=== PATIENT | male | born 1960 | race Caucasian/White ===

== ENCOUNTER 2016-05-15 11:08 | Emergency (ER) | payer MEDICAID ==
[2016-05-15 11:29] VITALS: BMI 46.5
[2016-05-15 11:30] VITALS: TEMP 98.3
[2016-05-15] MEDS ORDERED: ONDANSETRON HCL 4 MG ODT TAB PO ONE (11:34)
[2016-05-15] MEDS ORDERED: OXYCODONE HCL 5 MG TABLET PO ONE (11:34)
[2016-05-15] MEDS ORDERED: KETOROLAC TROMETHAMINE 10 MG TAB PO ONE (11:34)
--- NOTE | 2016-05-15 12:36 | EDPRACDOC ---
- General Information Chief Complaint: Headache Stated Complaint: FALL (HEADACHE) Time Seen by Provider: 05/15/16 11:29 Information Source: Patient Mode Of Arrival: Car Home Medications: Home Medications Insulin Aspart [Novolog] 20 units SQ ACHS 07/05/14 Insulin Detemir [Levemir] 40 unit SQ BID 07/05/14 Aspirin [Aspirin EC] 81 mg PO DAILY 11/13/14 Gemfibrozil [Lopid] 600 mg PO BID 12/11/14 Metoprolol Tartrate [Lopressor] 25 mg PO BID 12/11/14 Pravastatin [Pravachol] 30 mg PO HS 12/11/14 Meloxicam 15 mg PO DAILY 07/30/15 Minocycline HCl 100 mg PO BID 07/30/15 Mv,Minerals/FA/Lycopene/Ginkgo [One Daily For Men 50+ Adv Tab] 1 tab PO DAILY Oxycodone HCl/Acetaminophen [Percocet 10-325 mg Tablet] 1 tab PO Q8H PRN Pregabalin [Lyrica] 150 mg PO Q8H 07/30/15 Ranitidine HCl 300 mg PO QHS 07/30/15 MetFORMIN (Immediate Release) [GLUCOPHAGE Immed Release] 1,000 mg PO 0700,1700 11/20/15 Butalb/Acetamin/Caffeine [Fioricet] 1 each PO Q4-6H #30 tab 05/15/16 Ondansetron HCl [Zofran] 4 mg PO Q6H PRN #20 tab 05/15/16 Allergies/Adverse Reactions: Allergies Allergy/AdvReac Type Severity Reaction Status Date / Time erythromycin base Allergy Mild Rash-Genera Verified 05/15/16 11:36 [Erythromycin Base] lized codeine [Codeine] Allergy Unknown Unknown/See Verified 05/15/16 11:36 Comments ciprofloxacin [From Cipro] Allergy Nausea/Vomi Verified 05/15/16 11:36 ting ciprofloxacin HCl Allergy Nausea/Vomi Verified 05/15/16 11:36 [From Cipro] ting Sulfa (Sulfonamide Allergy Rash-Genera Verified 05/15/16 11:36 Antibiotics) lized [Sulfa(Sulfonamide Antibiotics)] Penicillins AdvReac Nausea/Vomi Verified 05/15/16 11:36 ting CLINDACIN P Allergy Rash-Genera Uncoded 05/15/16 11:36 lized - History of Present Illness Onset: 5 days HPI: PT PRESENTS TODAY WITH GENERALIZED DELANEY WITH ASSOCIATED DIZZINESS AND INABILITY TO CONCENTRATE AFTER MECHANICAL FALL ON ICE 5 DAYS AGO. STATES THAT HE THOUGHT IT WOULD GO AWAY, BUT HAS NOT. TAKES ASA. NO APPARENT DISTRESS. Location: Reports: Generalized Pain Quality: Reports: Moderate, Throbbing Relevant History of: Reports: None Associated Signs and Symptoms: Reports: Occasional Headache, Confusion, Nausea/ Vomiting (X 2 TODAY) ED Past Medical History - History Reviewed Yes Nurses notes reviewed and agree except as marked - Patient Medical History Neurological History: Reports: Cerebrovascular Accident. Denies: Dementia Cardiac History: Reports: Hypertension, Heart Attack, Cardiac Catheterization, Hypercholesterolemia. Denies: Atrial Fibrillation, Congestive Heart Failure Respiratory History: Denies: Asthma, COPD, Chronic Bronchitis, Emphysema GI/ History: Reports: Gastroesophageal Reflux Musculoskeletal History: Reports: Arthritis, Osteoarthritis Psychological History: Denies: Depression, Anxiety Systemic History: Reports: Diabetes. Denies: Cancer Surgical History: Reports: Cardiac Catheterization - Family Medical History Reports: Hypertension, Diabetes, Cancer, Cardiac Disorders - Social Medical History Smoking Status: Former smoker EDM Review of Systems - Review of Systems ROS Negative Except as Marked: Yes All systems reviewed and were negative except as marked Constitutional: No Symptoms Reported Eyes: No Symptoms Reported Ears: No Symptoms Reported Throat: No Symptoms Reported Nose: No Symptoms Reported Respiratory: No Symptoms Reported Cardiovascular: No Symptoms Reported Gastrointestinal: Nausea, Vomiting Neurological: Dizziness, Headache, Memory Changes Musculoskeletal: No Symptoms Reported Integumentary: No Symptoms Reported - Physical Exam Constitutional: Alert (Awake), No apparent distress Oriented to: Time, Person, Place Last recorded Vital Signs: Last Vital Signs Temp 98.3 F 05/15/16 11:29 Pulse 106 05/15/16 11:29 Resp 18 05/15/16 11:29 BP 175/94 05/15/16 11:29 Pulse Ox 95 05/15/16 11:29 Oxygen Pulse Oxygen Saturation 95 O2 Device Oxygen Flow Rate Fraction of Inspired Oxygen ( FIO2) - HEENT Head: Normal Eye Exam: Normal Oropharynx: Normal Tympanic Membrane: Normal ENT EAC: Normal Nose: No Symptoms Reported Neck: Normal, Denies Pain, Midline - Respiratory/Cardiovascular Respiratory: Normal - CTA Cardiovascular: Normal - GI Palpation: Normal Tenderness: Non tender - Musculoskeletal Back: Normal Extremities: Normal - Integumentary Skin: Normal Lymphatics: Normal - Neurologic Cranial Nerve: Normal Cerebellar: Normal Mood Description: Normal Thought: Coherent Perception: Normal - Re-evaluation Re-evaluation 1 Re-evaluation Time: 13:17 PT RESTING, BUT STILL C/O SLIGHT DELANEY. NO DISTRESS WHILE HERE. - Results POC Capillary Glucose 309 MG/DL (70-99) H 05/15/16 11:43 Lab Results 05/15/16 11:43 POC Capillary Glucose 309 H Decision Time to Discharge: 13:17 - Departure Disposition: Home Condition: Good Final Diagnosis: Migraine Instructions: Migraine Headache (ED) Education/Counseling Given To: Patient Education/Counseling Given Regarding: Diagnosis, Treatment, Follow Up Referrals: None,No Provider [Primary Care Provider] - One Week PATRICK HASSAN [NonStaff] - One Week Guzman Cm MD [Staff Physician] - One Week Prescriptions: Butalb/Acetamin/Caffeine [Fioricet] 1 each PO Q4-6H #30 tab Ondansetron HCl [Zofran] 4 mg PO Q6H PRN #20 tab PRN Reason: Nausea/Vomiting Additional Instructions: PLEASE FOLLOW UP WITH PCP IF SYMPTOMS PERSIST.
--- NOTE | 2016-05-15 13:03 | DIRPT ---
CLINICAL DATA: Fall, confusion, headache, vomiting since fall EXAM: CT HEAD WITHOUT CONTRAST TECHNIQUE: Contiguous axial images were obtained from the base of the skull through the vertex without intravenous contrast. COMPARISON: 09/11/2014 FINDINGS: No skull fracture is noted. There is probable scarring and chronic subcutaneous stranding in right parietal upper convexity scalp probable due to prior injury or infection. No acute hematoma is noted. No intracranial hemorrhage, mass effect or midline shift. Ventricular size is stable from prior exam. No acute cortical infarction. No intraventricular hemorrhage. No hydrocephalus. No mass lesion is noted on this unenhanced scan. IMPRESSION: No acute intracranial abnormality. No definite acute cortical infarction. Probable chronic scarring and chronic subcutaneous stranding in right parietal scalp high convexity most likely due to prior injury or infection. Previous see axial image 25. No acute scalp hematoma is noted. Electronically Signed By: Jose J Recinos M.D. On: 05/15/2016 13:01
[2016-05-15 13:15] VITALS: BP 161/93; PULSE 113
== END 2016-05-15 13:31 | disposition home or self-care (01) ==
LOC: ED 11:08 → EDMC 13:31
DX: G43.909 Migraine, unspecified, not intractable, without status migrainosus (principal); E11.9 Type 2 diabetes mellitus without complications
CPT/HCPCS: 70450; 82962; 99283; J3490